=== PATIENT | male | born 1935 | race Caucasian/White ===

== ENCOUNTER 2018-12-12 14:47 | Day surgery (SDC) | payer MEDICARE, BC ==
[~2018-12-12] VITALS: Ht 175.3 cm; Wt 81.1 kg
[2018-12-12] VITALS (7 sets, daily range): BP systolic 138–168; BP diastolic 62–80; PULSE 49–64; TEMP 97.5–97.6
[2018-12-12] MEDS ORDERED: ASPIRIN 81M81 MG/TA2 PO (15:22)
--- NOTE | 2018-12-12 17:07 | NUR ---
Patient moved to the PACU area and awaits surgery. Spouse and daughter in with patient.
--- NOTE | 2018-12-12 20:49 | NUR ---
Patient to the floor at 1900. Vital signs stable. Patient denies pain. He is alert and oriented and it was reported patient voided 700ml in PACU. Patient then voided x2 on the unit. He drank water and had some jello with no difficulties. Patient ambulates to the restroom with no difficulty. All criteria met for discharge. Patient assisted out at 2030 with family, belongings, and discharge instructions/summary.
== END 2018-12-12 20:30 | disposition home or self-care (01) ==
LOC: SDCO 14:47 → SURG 19:00 → SDCO 20:30
DX: N20.2 Calculus of kidney with calculus of ureter (principal); Z90.79 Acquired absence of other genital organ(s); Z79.82 Long term (current) use of aspirin; Z88.2 Allergy status to sulfonamides; K21.9 Gastro-esophageal reflux disease without esophagitis; Z85.46 Personal history of malignant neoplasm of prostate
CPT/HCPCS: OP; C1769; J0690; J1100; J1940; J2405; J2704; J3010; J7120; Q9967